=== PATIENT | male | born 1930 | race Asian ===

== ENCOUNTER → 2017-05-11 | Outpatient (CLI) | payer MEDICARE, OTHER ==
[~2017-05-11] VITALS: Ht 170.2 cm; Wt 78.0 kg
[2017-05-11 12:36] VITALS: BP 141/74
== END | disposition home or self-care (01) ==
LOC: SRCNTR 10:09
PROVIDERS: ATTEND Internal Medicine Clinical Cardiac Electrophysiology
DX: Z45.018 Encounter for adjustment and management of other part of cardiac pacemaker (principal); I48.0 Paroxysmal atrial fibrillation; I47.2 Ventricular tachycardia; I10 Essential (primary) hypertension
CPT/HCPCS: G0463

== ENCOUNTER → 2017-06-15 | Outpatient (CLI) | payer MEDICARE, OTHER ==
[~2017-06-15] VITALS: Ht 170.2 cm; Wt 77.0 kg
[~2017-06-15] MED LIST: AMLO-511 PO; LISI-662 PO; TAMS0.4C32 PO; VITAD1000 PO
[2017-06-15 10:17] VITALS: BP 142/74
== END | disposition home or self-care (01) ==
LOC: SRCNTR 10:12
PROVIDERS: ATTEND Internal Medicine Clinical Cardiac Electrophysiology
DX: Z45.018 Encounter for adjustment and management of other part of cardiac pacemaker (principal); I10 Essential (primary) hypertension; E11.9 Type 2 diabetes mellitus without complications
CPT/HCPCS: G0463

== ENCOUNTER → 2018-12-06 | Outpatient (CLI) | payer MEDICARE, OTHER ==
[~2018-12-06] VITALS: Ht 172.7 cm; Wt 88.0 kg
[2018-12-06 11:37] VITALS: BP 153/62
== END | disposition home or self-care (01) ==
LOC: SRCNTR 10:49
PROVIDERS: ATTEND Internal Medicine Clinical Cardiac Electrophysiology
DX: E11.9 Type 2 diabetes mellitus without complications (principal); I10 Essential (primary) hypertension; Z95.0 Presence of cardiac pacemaker
CPT/HCPCS: G0463